=== PATIENT | female | born 1935 | race Hispanic/Latino ===

== ENCOUNTER 2024-08-19 17:27 | Inpatient (IN) | payer MEDICARE ==
[~2024-08-19] VITALS: Ht 154.9 cm; Wt 72.3 kg
[2024-08-19 17:42] VITALS: TEMP 98.2
[2024-08-19 18:19] LABS: CLARITY,URINE CLEAR (CLEAR); COLOR,URINE YELLOW (YELLOW)
[2024-08-19 18:20] LABS: BILIRUBIN,URINE SMALL (NEGATIVE); GLUCOSE, URINE NEGATIVE (NEGATIVE); KETONES,URINE 1+ (NEGATIVE); LEUKOCYTE ESTERASE ,URINE NEGATIVE (NEGATIVE); NITRITE,URINE NEGATIVE (NEGATIVE); PH,URINE 5.5 (5 - 7); PROTEIN,URINE DIPSTICK TRACE (NEGATIVE); URINE UROBILINOGEN 2 mg/dL (0.2 - 1)
[2024-08-19 18:22] LABS: BACTERIA,URINE FEW /HPF; EPITHELIAL CELLS,URINE MODERATE /LPF; MUCUS,URINE FEW; RBC,URINE 0-5 /HPF (0-5); WBC,URINE (MAN) 0-5 /HPF (0-5)
[2024-08-19 18:23] LABS: BASOPHILS % 0.3 % (0.0-1.0); EOSINOPHILS # (AUTO) 0.2 (0.0-0.4); EOSINOPHILS % 1.4 % (0.0-6.0); HEMATOCRIT 40.5 % (34.2-44.1); HEMOGLOBIN 13.6 g/dL (12.0-16.0); LYMPHOCYTES # (AUTO) 1.7 (1.0-3.2); LYMPHOCYTES % 13.2 % (18.0-39.1); MEAN CORPUSCULAR HEMOGLOBIN 32.2 pg (28-32); MEAN CORPUSCULAR HGB CONC 33.6 g/dL (31-35); MEAN CORPUSCULAR VOLUME 95.7 fL (81-99); MONOCYTES # (AUTO) 1.5 (0.2-0.8); MONOCYTES % 11.7 % (4.4-11.3); NEUTROPHILS # (AUTO) 9.2 (2.1-6.9); NEUTROPHILS % 72.9 % (38.7-80.0); PLATELET COUNT 236 x10e3/uL (140-360); RED BLOOD COUNT 4.23 x10e6/uL (3.6-5.1); WHITE BLOOD COUNT 12.61 x10e3/uL (4.8-10.8)
[2024-08-19 18:34] LABS: INR 1.06; PROTHROMBIN TIME 14.4 seconds (11.9-14.5)
[2024-08-19 18:35] LABS: PARTIAL THROMBOPLASTIN TIME 33.6 seconds (23.8-35.5)
[2024-08-19 18:43] LABS: ALBUMIN 3.4 g/dL (3.5-5.0); ALBUMIN/GLOBULIN RATIO 0.8 (0.8-2.0); ANION GAP 18.7 mmol/L (8-16); BILIRUBIN,TOTAL 1.1 mg/dL (0.2-1.2); CALCIUM 9.3 mg/dL (8.4-10.2); CREATININE, SERUM 0.84 mg/dL (0.57-1.11); POTASSIUM 4.7 mmol/L (3.5-5.1); TOTAL PROTEIN 7.6 g/dL (6.5-8.1)
[2024-08-19 19:25] VITALS: PULSE 108; RESP 20
[2024-08-19] MEDS ORDERED: SODIUM CHLORIDE 0.9% 1000ML 1,000 ML ONE (19:40)
[2024-08-19] MEDS ORDERED: DEXTROSE 50% SYRINGE 50 ML IV PRN (19:45)
[2024-08-19] MEDS ORDERED: ONDANSETRON HCL INJ 2MG/ML 2ML 2 MG/ML VIAL IV PRN (19:45)
[2024-08-19] MEDS: SODIUM CHLORIDE 0.9% 1000ML 1,000 ML IV ONE (19:49)
[2024-08-19 20:34] VITALS: BP 152/78; PULSE 101; RESP 18; TEMP 99.6; O2SAT 96
[2024-08-19] MEDS: INSULIN REGULAR, HUMAN 100 UNIT/1 ML SQ SCH (22:23)
[2024-08-19 23:58] VITALS: BP 128/65; PULSE 93; RESP 18; TEMP 98.2; O2SAT 99
[2024-08-20] VITALS (12 sets, daily range): BP systolic 128–158; BP diastolic 65–87; PULSE 86–105; RESP 16–19; TEMP 97.4–99.5; O2SAT 94–100
[2024-08-20 06:16] LABS: BASOPHILS % 0.2 % (0.0-1.0); EOSINOPHILS # (AUTO) 0.3 (0.0-0.4); EOSINOPHILS % 3.3 % (0.0-6.0); HEMATOCRIT 35.7 % (34.2-44.1); HEMOGLOBIN 12.1 g/dL (12.0-16.0); LYMPHOCYTES # (AUTO) 1.7 (1.0-3.2); LYMPHOCYTES % 17.7 % (18.0-39.1); MEAN CORPUSCULAR HEMOGLOBIN 32.2 pg (28-32); MEAN CORPUSCULAR HGB CONC 33.9 g/dL (31-35); MEAN CORPUSCULAR VOLUME 94.9 fL (81-99); MONOCYTES # (AUTO) 1.4 (0.2-0.8); MONOCYTES % 14.7 % (4.4-11.3); NEUTROPHILS # (AUTO) 6.1 (2.1-6.9); NEUTROPHILS % 63.4 % (38.7-80.0); PLATELET COUNT 194 x10e3/uL (140-360); RED BLOOD COUNT 3.76 x10e6/uL (3.6-5.1); WHITE BLOOD COUNT 9.61 x10e3/uL (4.8-10.8)
[2024-08-20 06:47] LABS: ALBUMIN 2.7 g/dL (3.5-5.0); ALBUMIN/GLOBULIN RATIO 0.6 (0.8-2.0); ANION GAP 14.1 mmol/L (8-16); CALCIUM 9.1 mg/dL (8.4-10.2); CREATININE, SERUM 0.73 mg/dL (0.57-1.11); POTASSIUM 4.1 mmol/L (3.5-5.1); TOTAL PROTEIN 7.1 g/dL (6.5-8.1)
[2024-08-20 08:04] LABS: BILIRUBIN,TOTAL 0.8 mg/dL (0.2-1.2)
[2024-08-20] MEDS ORDERED: PROAIR RESPICL90 MCG INH (18:09)
[2024-08-20] MEDS ORDERED: LOVASTATIN40 MG PO (18:09)
[2024-08-20] MEDS ORDERED: WIXELA 250-501 EACH IH (18:09)
[2024-08-20] MEDS ORDERED: METFORMIN HCL500 MG PO (18:09)
[2024-08-20] MEDS ORDERED: LISINOPRIL5 MG PO (18:09)
[2024-08-20] MEDS: ATORVASTATIN 40 MG TAB PO SCH (21:00)
[2024-08-21] VITALS (7 sets, daily range): BP systolic 139–148; BP diastolic 71–89; PULSE 77–96; RESP 17–20; TEMP 97.5–98.6; O2SAT 95–98
[2024-08-21] MEDS: ACETAMINOPHEN 325 MG TAB PO PRN (10:11)
[2024-08-21] MEDS: ENOXAPARIN INJ 80 MG/0.8 ML SYR SC SCH (12:38)
[2024-08-21] MEDS ORDERED: PROPOFOL IV EMULSION 10 MG/ML 20 ML VIAL ONE (13:52)
[2024-08-21] MEDS ORDERED: LIDOCAINE HCL 2% LOCAL INJ 5 ML SDV VIAL INJ ONE (13:55)
[2024-08-21] MEDS: IBUPROFEN 400 MG TAB PO PRN (16:02)
[2024-08-22] VITALS (9 sets, daily range): BP systolic 105–144; BP diastolic 70–89; PULSE 77–97; RESP 18–19; TEMP 97.5–98.1; O2SAT 96–100
[2024-08-22 06:12] LABS: BASOPHILS % 0.4 % (0.0-1.0); EOSINOPHILS # (AUTO) 0.4 (0.0-0.4); EOSINOPHILS % 5.6 % (0.0-6.0); HEMATOCRIT 36.5 % (34.2-44.1); HEMOGLOBIN 12.3 g/dL (12.0-16.0); LYMPHOCYTES # (AUTO) 1.5 (1.0-3.2); LYMPHOCYTES % 18.6 % (18.0-39.1); MEAN CORPUSCULAR HEMOGLOBIN 31.9 pg (28-32); MEAN CORPUSCULAR HGB CONC 33.7 g/dL (31-35); MEAN CORPUSCULAR VOLUME 94.6 fL (81-99); MONOCYTES # (AUTO) 0.8 (0.2-0.8); MONOCYTES % 10.1 % (4.4-11.3); NEUTROPHILS # (AUTO) 5.1 (2.1-6.9); NEUTROPHILS % 64.8 % (38.7-80.0); PLATELET COUNT 244 x10e3/uL (140-360); RED BLOOD COUNT 3.86 x10e6/uL (3.6-5.1); RED CELL DISTRIBUTION WIDTH 11.9 % (11.7-14.4); WHITE BLOOD COUNT 7.86 x10e3/uL (4.8-10.8)
[2024-08-22 06:43] LABS: CREATININE, SERUM 0.66 mg/dL (0.57-1.11)
[2024-08-23] VITALS (8 sets, daily range): BP systolic 128–160; BP diastolic 63–93; PULSE 74–112; RESP 17–20; TEMP 97–98.2; O2SAT 96–99
[2024-08-23 10:22] LABS: BODY FLUID APPEARANCE CLOUDY; BODY FLUID COLOR YELLOW; BODY FLUID TYPE SYNOVIAL; RBC,BODY FLUID 1000 cells/uL; WBC,BODY FLUID 1035 cells/uL
[2024-08-23 12:36] LABS: LYMPHOCYTES,BODY FLUID 8 %; MONO/MACROPHG,BODY FLUID 33 %; NEUTROPHILS,BODY FLUID 59 %; TOTAL CELLS COUNTED (DIFF) 100
[2024-08-24] VITALS (9 sets, daily range): BP systolic 141–161; BP diastolic 73–95; PULSE 79–107; RESP 17–20; TEMP 97.6–98.6; O2SAT 97–100
[2024-08-25 03:40] VITALS: BP 150/86; PULSE 86; RESP 18; TEMP 97.8; O2SAT 97
[2024-08-25 08:00] VITALS: BP 129/88; PULSE 90; RESP 18; TEMP 98; O2SAT 97
[2024-08-25 08:02] VITALS: BP 129/88; PULSE 90; RESP 17; TEMP 98.5; O2SAT 97
[2024-08-25 11:50] VITALS: BP 147/82; PULSE 95; RESP 17; TEMP 98.3; O2SAT 99
[2024-08-25] MEDS ORDERED: ELIQUIS5 MG PO (15:35)
[2024-08-25 16:21] VITALS: BP 136/80; PULSE 73; RESP 17; TEMP 98.1; O2SAT 96
== END 2024-08-25 17:32 | disposition home health service (06) | DRG 71 ==
LOC: ER 18:23 → ERHOLD 19:48 → MED/SURG3 21:23 → OBSVTOIN 08-21 10:45
PROVIDERS: ADMIT Internal Medicine; ATTEND Internal Medicine
PROC: 0S9D3ZX Drainage of Left Knee Joint, Percutaneous Approach, Diagnostic (ICD-10-PCS; principal; 2024-08-23)
DX: G93.41 Metabolic encephalopathy (principal); I69.354 Hemiplegia and hemiparesis following cerebral infarction affecting left non-dominant side; I82.432 Acute embolism and thrombosis of left popliteal vein; E11.65 Type 2 diabetes mellitus with hyperglycemia; E78.5 Hyperlipidemia, unspecified; G30.9 Alzheimer's disease, unspecified; F02.80 Dementia in other diseases classified elsewhere, unspecified severity, without behavioral disturbance, psychotic disturbance, mood disturbance, and anxiety; D72.829 Elevated white blood cell count, unspecified; M25.462 Effusion, left knee; I10 Essential (primary) hypertension; M15.4 Erosive (osteo)arthritis; R00.0 Tachycardia, unspecified; Z79.01 Long term (current) use of anticoagulants; Z90.49 Acquired absence of other specified parts of digestive tract; Z88.0 Allergy status to penicillin
CPT/HCPCS: 36415; 70551; 71045; 80048; 80053; 81001; 82948; 83605; 83880; 85025; 85610; 85730; 87040; 87070; 87086; 87205; 89051; 89060; 93005; 93306; 93970; 94799; 95819; 99252; 99284; G0378; J1650; J2003; J7030